=== PATIENT | male | born 1995 | race Caucasian/White ===

== ENCOUNTER 2021-03-06 21:55 | Emergency (ER) | payer BC ==
[2021-03-06 22:39] VITALS: BMI 31.1
[2021-03-06] MEDS ORDERED: ACETAMINOPHEN 500 MG TABLET (FP) PO ONE (22:44)
[2021-03-06 23:19] VITALS: BP 118/78; PULSE 90; TEMP 99
[2021-03-06] MEDS ORDERED: ONDANSETRON *ODT* 4 MG TABLET SL ONE (23:32)
[2021-03-06] MEDS ORDERED: ONDANSETRON *ODT* 4 MG TABLET ONE (23:33)
[2021-03-08 16:09] LABS: SARS-CoV-2 NAA Detected (Not Detected)
== END 2021-03-06 23:35 | disposition home or self-care (01) ==
LOC: FER 21:55
DX: U07.1 COVID-19 (principal)
CPT/HCPCS: 71045-TC-FY; 87804; 99284-25; C9803; Q0162; U0003; U0005